=== PATIENT | male | born 1970 | race Caucasian/White ===

== ENCOUNTER → 2016-06-25 | Outpatient (CLI) | payer MEDICARE, OTHER ==
--- NOTE | 2016-06-25 17:45 | CONS ---
DATE OF CONSULTATION: 06/25/2016 This patient is a 45-year-old gentleman who has been evaluated in the sleep center for obstructive sleep apnea/hypopnea syndrome. HISTORY OF PRESENT ILLNESS/SLEEP-WAKE EVALUATION: Patient was diagnosed with obstructive sleep apnea about 3 years ago. At that time it was recommended that he use CPAP equipment. But then he moved, and because of insurance issues and other things, the CPAP machine was taken from him. At present his sleep schedule is from around 11 p.m. until 7 in the morning. He does have problems with falling asleep. No TV in bedroom. He wakes up from sleep about 3 times with 3 episodes of nocturia. He snores, has witnessed episodes of stopped breathing during sleep. In the morning he wakes up tired, falling asleep during the day, worrying about his sleep. He has episodes of anxiety. [place] Sleepiness Scale is 10. Past medical history is positive for: 1. Schizoaffective paranoid type of disorder. 2. Hyperlipidemia. MEDICATIONS: 1. ( ) 2. Vitamins. 3. Clonazepam. 4. Olanzapine. 5. Fenofibrate. 6. Tylenol. 7. ( ) 8. Desmopressin. PAST SURGICAL HISTORY: Ear surgery many years ago. SOCIAL HISTORY: Positive for smoking 1 pack a day for about 17 years. Alcohol consumption: None. REVIEW OF SYSTEMS: No fevers. No double vision. No recent chest pain. No shortness of breath. No abdominal pain. No bleeding episodes. No blood in urine. No seizure episodes. Awakenings from sleep. Tiredness and sleepiness during the day. FAMILY HISTORY: Patient does not remember any family history. PHYSICAL EXAMINATION: GENERAL: A pleasant 45-year-old gentleman without distress. VITAL SIGNS: BP 129/85, HR 88, RR 16. Height 5 feet 10 inches. Weight 227. Neck 16-1/4 inches in circumference. Temperature 98.6. BMI 32.5. Oxygen saturation at room air 96%. HEENT: PERRLA, EOMI. Evaluation of oropharynx showed tongue protrudes midline; retrognathia 4 mm. Extremely low position of soft palate. Mallampati IV. Slight restriction of nasal breathing. NECK: Supple. No JVD. Thyroid is not palpable. LUNGS: Clear to percussion and to auscultation. Good air exchange. No wheezing or rhonchi. HEART: S1, S2 regular. No murmurs, gallops or rubs. ABDOMEN: Soft and nontender. Bowel sounds are present. No organomegaly appreciated. EXTREMITIES: No clubbing or cyanosis. PERSONNEL SECURITY ASSISTANT: Awake, alert, and oriented x3. Cranial nerves 2 to 7 intact. There is no fasciculation or atrophy noted. No focal deficits observed. IMPRESSION: 1. Snoring, witnessed episodes of stopped breathing during sleep, extremely low position of soft palate, retrognathia, excessive sleepiness, Solomon Sleepiness Scale of 10, history of obstructive sleep apnea/hypopnea syndrome in the past; obstructive sleep apnea/hypopnea syndrome. 2. Obesity; body mass index of 32.5. 3. Schizoaffective paranoid type disorder. 4. Hyperlipidemia. PLAN: 1. Polysomnography for evaluation of patient's breathing during sleep. 2. CPAP/BiPAP titration if sleep study confirms obstructive sleep apnea-hypopnea syndrome. 3. Preferable position during sleep on the side. 4. No driving if patient feels any sleepiness. Patient is aware of civil and criminal liability for unsafe driving. 5. I will see patient for follow-up visit to explain results of the testing and following plan. Thank you very much for referring this patient for consultation. Sincerely, Oz Ramos MD, PhD, FAASM. Diplomat of [place] [employer], Sleep Medicine Board by [place] [employer] Flexible Machining System Machinist of [facility] [place]
== END | disposition home or self-care (01) ==
LOC: SLEEP 15:31
PROVIDERS: ATTEND Internal Medicine
DX: G47.33 Obstructive sleep apnea (adult) (pediatric) (principal); E66.9 Obesity, unspecified; Z68.32 Body mass index [BMI] 32.0-32.9, adult; F20.0 Paranoid schizophrenia; E78.5 Hyperlipidemia, unspecified; Z79.899 Other long term (current) drug therapy
CPT/HCPCS: 99211

== ENCOUNTER → 2016-11-12 | Outpatient (CLI) | payer MEDICARE, OTHER ==
--- NOTE | 2016-11-12 23:49 | PN ---
DATE OF SERVICE: 11/12/2016 This patient is a 46-year-old gentleman who has been followed in the sleep center for treatment of obstructive sleep apnea-hypopnea syndrome. Recently patient had a polysomnogram and titration, and I discussed the results of these sleep studies with the patient in detail. He has extremely severe obstructive sleep apnea. He was started on treatment with CPAP. Recently he was started on treatment with the pressure of 14, but he had difficulties tolerating that pressure. Pressure was decreased to 11. At present patient is on CPAP with the pressure 11, and reading from the machine shows usage 20 out of 30 nights for more than 4 hours. CPAP pressure is 11. Leak from the mask is a 41 L/minute. With this regimen, apnea-hypopnea index is 3.6, which is in normal range. Patient sleeps much better with the machine and feels much better during the day. [place] Sleepiness Scale today is 3. MEDICATIONS: 1. ( ) 2. Clonazepam. 3. Olanzapine. 4. Desmopressin. 5. Fenofibrate. 6. ( ) 7. Acetaminophen. 8. ( ) PHYSICAL EXAMINATION: Patient in no distress. VITAL SIGNS: BP 141/86, HR 88, RR 16. Weight 237. Temperature 97.6. Oxygen saturation at room air 96%. HEENT: PERRLA, EOMI. Evaluation of oropharynx showed tongue protrudes midline; extremely low position of soft palate. NECK: Supple. No JVD. Thyroid is not palpable. LUNGS: Clear to percussion and to auscultation. Good air exchange. No wheezing or rhonchi. HEART: S1, S2 regular. No murmurs, gallops or rubs. ABDOMEN: Soft and nontender. Bowel sounds are present. No organomegaly appreciated. EXTREMITIES: No clubbing or cyanosis. WELDER/INSTALLER: Awake, alert, and oriented x3. Cranial nerves 2 to 7 intact. There is no fasciculation or atrophy noted. No focal deficits observed. IMPRESSION: 1. Extremely severe obstructive sleep apnea-hypopnea syndrome; apnea-hypopnea index 110.6 with oxygen desaturation to 75.3%, mostly under control with CPAP at 11 cm of water. Patient demonstrated borderline compliance. 2. ( ) leak from the mask. We will possibly consider changing the mask, although the breathing is under control. 3. Schizophrenia. 4. Anxiety. PLAN: 1. Patient will continue to use his equipment every night for the whole night. 2. Sleep hygiene with regular time in bed for at least 8 hours[address] Patient [address] 4. Prescription for all necessary supplies. Thank you very much for allowing me to participate in the management of your patient. Sincerely, Oz Ramos MD, PhD, FAASM. Diplomat of [place] [employer], Sleep Medicine Board by [place] [employer], [place] [employer]
== END | disposition home or self-care (01) ==
LOC: SLEEP 15:23
PROVIDERS: ATTEND Internal Medicine
DX: G47.33 Obstructive sleep apnea (adult) (pediatric) (principal); Z79.899 Other long term (current) drug therapy; F20.9 Schizophrenia, unspecified; F41.9 Anxiety disorder, unspecified

== ENCOUNTER → 2017-05-12 | Outpatient (CLI) | payer MEDICARE, OTHER ==
--- NOTE | 2017-05-12 15:21 | PN ---
PROGRESS NOTE DATE OF SERVICE: 05/12/2017 46-year-old gentleman has been followed in the Sleep Center for treatment of extremely severe obstructive sleep apnea-hypopnea syndrome. The patient is trying to use his CPAP equipment every night, but sometimes has difficulties because he likes to sleep on the belly and with the CPAP he has difficulties to do that. [place] Sleepiness Scale today is 1. The patient has episodes of sleepiness sometimes especially in the morning after awakening. Sometimes it is difficult to wake him up. I checked his CPAP unit. Usage for period of 6 months is 111 nights and more than 4 hours. This is 77 nights. Average usage is 5.7 hours. Pressure is 10.8 cm of water. Leak is up to 42 L/minute. Apnea-hypopnea index for this period of time is 5.1, for the last night is 3.5. The patient referred that he had changes of the mask and adjusted to humidity and with this regimen he feels better in terms of using his CPAP equipment. MEDICATIONS: 1. Fluvoxamine. 2. . 3. Clonazepam in the evening time. 4. Divalproex. 5. Desmopressin. 6. Fenofibrate. 7. Olanzapine. 8. Simvastatin. PHYSICAL EXAM: Patient in no distress. BP 140/83, HR 71, RR 16, height 5 feet 10 inches, weight 233.8, BMI 33.4, oxygen saturation on room air 96%. Temperature 97.6. Oropharynx low position of soft palate. Retrognathia. ABDOMEN: Obese. Neck Supple, no JVD. Thyroid is not palpable. LUNGS Clear to percussion and to auscultation. Good air exchange. No wheezing or rhonchi. HEART S1, S2 regular. No murmurs, gallops, or rubs. ABDOMEN: Obese. Soft and nontender. Bowel sounds are present. No organomegaly appreciated. EXTREMITIES: No clubbing or cyanosis. BOILER INSPECTOR Awake, alert, and oriented X3. Cranial nerves 2 to 7 intact. There is no fasciculation or atrophy. noted. No focal deficits observed. IMPRESSION: 1. Extremely severe obstructive sleep apnea-hypopnea syndrome apnea-hypopnea index 110.6 with oxygen desaturation to 75.3%, most on control with CPAP at the pressure 11 cm of water. Patient has difficulties to use CPAP equipment while sleeping on the daily position. This is his preferable position during the sleep. 2. History of anxiety. 3. History of schizophrenia. 4. Hyperlipidemia. PLAN: 1. Prescription for a pillow with a space for the holes which we will allow patient to sleep on the belly with CPAP. 2. Continue to use CPAP equipment every night for the whole night. The patient agreed that he needs to do that. 3. Sleep hygiene with regular time in bed for at least 7.[address] 5. Prescription for all necessary CPAP supplies including mask, tube, filters. Thank you very much for allowing me to participate in management of your patient. Sincerely, Oz Ramos MD, PhD, FAASM Diplomat of [employer] Special[employer] Board of Internal Medicine Supervisor Fishing of [facility] [place] MMJUAN / SHAVON: [id number] /
== END | disposition home or self-care (01) ==
LOC: SLEEP 13:24
PROVIDERS: ATTEND Internal Medicine
DX: G47.33 Obstructive sleep apnea (adult) (pediatric) (principal); E78.5 Hyperlipidemia, unspecified

== ENCOUNTER → 2017-07-23 | Outpatient (CLI) | payer MEDICARE, OTHER ==
--- NOTE | 2017-07-23 13:42 | CT ---
EXAMINATION TYPE: CT cervical spine wo con DATE OF EXAM: 07/23/2017 COMPARISON: NONE HISTORY: Neck pain CT DLP: 845 mGycm Automated exposure control for dose reduction was used. TECHNIQUE: CT scan of the cervical spine is obtained without contrast, axial images are obtained, sa gittal and coronal reformatted images are also reviewed. FINDINGS: No acute fractures are evident. There is some uncovertebral joint atrophy contributing to m ild foraminal narrowing within the mid to lower cervical spine. No spinal canal stenosis is present. Vertebral body heights are preserved. Anterior vertebral body spurring is present C5-6. Mild posterio r disc height loss is present C5-6. Posterior spinal malalignment intact IMPRESSION: 1. No suspicious spinal canal stenosis. 2. Mild foraminal narrowing from uncovertebral joint atrophy.
== END | disposition home or self-care (01) ==
LOC: RADCTMAIN 13:08
PROVIDERS: ATTEND Psychiatry & Neurology Neurology
DX: M99.71 Connective tissue and disc stenosis of intervertebral foramina of cervical region (principal); M50.820 Other cervical disc disorders, mid-cervical region, unspecified level
CPT/HCPCS: 72125

== ENCOUNTER → 2017-12-02 | Outpatient (CLI) | payer MEDICARE, OTHER ==
--- NOTE | 2017-12-02 14:22 | PN ---
PROGRESS NOTE DATE OF SERVICE: 12/02/2017 A 47-year-old gentleman who has been followed in the Sleep Center for treatment of obstructive sleep apnea-hypopnea syndrome. The patient is trying to use his machine, but unfortunately not using it every night. Using the machine, according to the he is better after the night when he is not using it. I checked his CPAP unit and usage is 10 of 30 nights for more than 4 hours and 14 out of 30 nights for total usage in one month. Leak is 18 L/minute, which is acceptable. Apnea apnea-hypopnea index slightly high range of 10 for the last month, but it is significantly better than the general apnea-hypopnea index which patient has and which is 110.6 per hour. CPAP pressure in the unit of 11 cm of water. MEDICATIONS: 1. Divalproex. 2. Desmopressin. 3. Lisinopril. 4. Olanzapine. 5. Fluvoxamine. 6. Clonazepam. 7. Baclofen. 8. Ibuprofen. 9. Simvastatin. 10. . [place] Sleepiness Scale is 3. PHYSICAL EXAM: A 47-year-old gentleman without distress. BP 108/82, HR 78, RR 16, height 5 feet 10 inches, weight 229, BMI 32.3, temperature 97.6. Oropharynx low position of soft palate. ABDOMEN: Slightly obese. NECK: Supple, no JVD. Thyroid is not palpable. LUNGS Clear to percussion and to auscultation. Good air exchange. No wheezing or rhonchi. HEART S1, S2 regular. No murmurs, gallops, or rubs. EXTREMITIES No clubbing or cyanosis. WRAP KNITTING MACHINE OPERATOR: Awake, alert, and oriented X3. Cranial nerves 2 to 7 intact. There is no fasciculation or atrophy. noted. No focal deficits observed. IMPRESSION: 1. Extremely severe obstructive sleep apnea-hypopnea syndrome with apnea-hypopnea index 110.6 with oxygen desaturation to 75.3%. The patient is benefitting from CPAP therapy. 2. History of anxiety. 3. History of schizophrenia. 4. Hyperlipidemia. 5. Mild obesity. PLAN: 1. The patient should increase usage of his CPAP unit every night for the whole night. 2. Watching and losing weight. 3. Sleep hygiene with regular time in bed for at least 8 hours. 4. The patient does not drive. Thank you very much for allowing me to participate in management of your patient. Sincerely, Oz Ramos MD, PhD, FAASM Diplomat of [place] [employer] Specialties [place] Board of Internal Medicine Art Supervisor of [facility] [place] MMJUAN / SHAVON: [id number] /
== END | disposition home or self-care (01) ==
LOC: SLEEP 13:01
PROVIDERS: ATTEND Internal Medicine
DX: G47.33 Obstructive sleep apnea (adult) (pediatric) (principal); E66.9 Obesity, unspecified; F41.9 Anxiety disorder, unspecified; F20.9 Schizophrenia, unspecified; E78.5 Hyperlipidemia, unspecified; Z68.32 Body mass index [BMI] 32.0-32.9, adult; Z79.1 Long term (current) use of non-steroidal anti-inflammatories (NSAID); Z79.891 Long term (current) use of opiate analgesic; Z79.899 Other long term (current) drug therapy; Z99.89 Dependence on other enabling machines and devices

== ENCOUNTER → 2018-07-20 | Outpatient (CLI) | payer MEDICARE, OTHER | END | disposition home or self-care (01) | LOC: LABWHC1 14:50 | PROVIDERS: ATTEND Psychiatry & Neurology Psychiatry | DX: Z51.81 Encounter for therapeutic drug level monitoring (principal); Z79.899 Other long term (current) drug therapy | CPT/HCPCS: 36415; 80299 ==

== ENCOUNTER 2018-09-14 17:28 | Emergency (ER) | payer MEDICARE, OTHER ==
[2018-09-14 17:47] VITALS: BP 117/82; TEMP 98.1
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
[2018-09-14 18:20] LABS: Basophils # (A) 0.1 k/uL (0-0.2); Basophils % (A) 1 %; Eosinophils # (A) 0.1 k/uL (0-0.7); Eosinophils % (A) 2 %; HCT 44.2 % (39.0-53.0); Lymphocytes # (A) 1.9 k/uL (1.0-4.8); Lymphocytes % (A) 35 %; MCH 31.1 pg (25.0-35.0); MCHC 33.9 g/dL (31.0-37.0); MCV 91.8 fL (80.0-100.0); Mean Platelet Volume 7.8; Monocytes # (A) 0.4 k/uL (0-1.0); Monocytes % (A) 7 %; Neutrophils # (A) 2.7 k/uL (1.3-7.7); Neutrophils % (A) 51 %; Platelet Count 227 k/uL (150-450); RBC 4.81 m/uL (4.30-5.90); RDW 14.1 % (11.5-15.5); WBC 5.3 k/uL (3.8-10.6)
[2018-09-14 18:29] LABS: ALT 49 U/L (21-72); AST 51 U/L (17-59); Albumin 4.3 g/dL (3.5-5.0); Alkaline Phosphatase 73 U/L (38-126); Anion Gap 11 mmol/L; Blood Urea Nitrogen 17 mg/dL (9-20); Calcium 9.4 mg/dL (8.4-10.2); Carbon Dioxide 22 mmol/L (22-30); Chloride 111 mmol/L (98-107); Glucose 98 mg/dL (74-99); Lipase 126 U/L (23-300); Magnesium 2.1 mg/dL (1.6-2.3); Potassium 4.2 mmol/L (3.5-5.1); Sodium 144 mmol/L (137-145); Total Bilirubin 0.3 mg/dL (0.2-1.3); Total Protein 6.8 g/dL (6.3-8.2)
--- NOTE | 2018-09-14 18:30 | CT ---
EXAMINATION TYPE: CT brain wo con DATE OF EXAM: 09/14/2018 COMPARISON: None HISTORY: Head injury, disoriented CT DLP: 1099.4 mGycm. Automated Exposure Control for Dose Reduction was Utilized. TECHNIQUE: CT scan of the head is performed without contrast. FINDINGS: Ventricles and sulci appear normal. There is no mass effect nor midline shift. There is no sign of intracranial hemorrhage. There is some mucosal thickening right maxillary sinus. Calvarium ap pears intact. IMPRESSION: Negative CT scan of the brain.
[2018-09-14 18:31] LABS: Amphetamine Screen,Urine Not Detected (NotDetected); Barbiturate Screen,Urine Not Detected (NotDetected); Benzodiazepines Screen,Urine Not Detected (NotDetected); Cocaine Screen,Urine Not Detected (NotDetected); Methadone Screen, Urine Not Detected (NotDetected); Opiate Screen,Urine Not Detected (NotDetected); Oxycodone Screen, Urine Not Detected (NotDetected); Phencyclidine Screen,Urine Not Detected (NotDetected); Tricyclic Antidepressant,Urine Not Detected (NotDetected); Urn Cannabinoid Scrn Not Detected (NotDetected)
[2018-09-14 18:34] LABS: Valproic Acid (Depakene) 45.1 ug/mL
[2018-09-14 18:42] LABS: Alcohol 242 mg/dL
[2018-09-15 03:28] VITALS: PULSE 70; RESP 16
== END 2018-09-15 03:26 | disposition home or self-care (01) ==
LOC: EC 17:28
DX: F10.129 Alcohol abuse with intoxication, unspecified (principal); S00.01XA Abrasion of scalp, initial encounter; R45.851 Suicidal ideations; F17.200 Nicotine dependence, unspecified, uncomplicated; Z79.899 Other long term (current) drug therapy; Z88.2 Allergy status to sulfonamides; W19.XXXA Unspecified fall, initial encounter
CPT/HCPCS: 36415; 80164; 83930; 80053; 83690; 83735; 85025; 80306; 70450; 99285; G0480; 80320; 82075

== ENCOUNTER 2019-09-13 11:01 | Emergency (ER) | payer MEDICARE, OTHER ==
--- NOTE | 2019-09-13 11:41 | ED ---
General Adult HPI - General Chief complaint: Psychiatric Symptoms Stated complaint: PETITIONED Time Seen by Provider: 09/13/19 11:05 Source: patient, police, RN notes reviewed, old records reviewed Mode of arrival: ambulatory Limitations: no limitations - History of Present Illness Initial comments: This is a 49-year-old male who presents emergency department stating that he was in a retirement and he gets upset about a situation retirement so he got up and left and went to a motel. Patient states because of that he has not been taking any of his medication. Today the police came to him and said that they had a court order for him to be evaluated emergency department. Patient denies any suicidal homicidal ideations. Patient denies any drug use. Patient denies any physical complaints today. - Related Data Home Medications Medication Instructions Recorded Confirmed Baclofen [Lioresal] 10 mg PO DAILY 09/14/18 09/14/18 Benzedrex 2 sprays EA NOSTRIL QID 09/14/18 09/14/18 Desmopressin [Ddavp] 0.2 mg PO HS 09/14/18 09/14/18 Divalproex ER [Depakote ER] 1,250 mg PO HS 09/14/18 09/14/18 Ibuprofen [Motrin] 600 mg PO BID PRN 09/14/18 09/14/18 Lisinopril [Zestril] 20 mg PO DAILY 09/14/18 09/14/18 Multivitamins, Thera [Multivitamin 1 tab PO DAILY 09/14/18 09/14/18 (formulary)] OLANZapine [ZyPREXA] 20 mg PO HS 09/14/18 09/14/18 [place]-3 Fatty Acids/Fish Oil [Fish 1,000 mg PO BID 09/14/18 09/14/18 Oil 1,000 mg Softgel] Triamcinolone 0.5% Cream [Kenalog 1 applic TOPICAL BID 09/14/18 09/14/18 0.5% Cream] fluvoxaMINE MALEATE [Fluvoxamine 100 mg PO BID 09/14/18 09/14/18 Maleate] Allergies Allergy/AdvReac Type Severity Reaction Status Date / Time Sulfa (Sulfonamide Allergy Rash/Hives Verified 09/13/19 11:11 Antibiotics) Review of Systems ROS Statement: Those systems with pertinent positive or pertinent negative responses have been documented in the HPI. ROS Other: All systems not noted in ROS Statement are negative. Past Medical History Past Medical History: No Reported History Additional Past Medical History / Comment(s): schizophrenia History of Any Multi-Drug Resistant Organisms: None Reported Past Surgical History: Ear Surgery, Orthopedic Surgery Past Psychological History: Anxiety, Panic Disorder, Schizophrenia Smoking Status: Current every day smoker Past Alcohol Use History: None Reported Past Drug Use History: None Reported General Exam - General Exam Comments Initial Comments: GENERAL: Patient is well-developed and well-nourished. Patient is nontoxic and well- hydrated and is in no acute distress. ENT: Neck is soft and supple. No significant lymphadenopathy is noted. Neck has full range of motion without eliciting any pain. EYES: The sclera were anicteric and conjunctiva were pink and moist. Extraocular movements were intact and pupils were equal round and reactive to light. Eyelids were unremarkable. PULMONARY: Unlabored respirations. Good breath sounds bilaterally. No audible rales rhonchi or wheezing was noted. CARDIOVASCULAR: There is a regular rate and rhythm without any murmurs gallops or rubs. ABDOMEN: Soft and nontender with normal bowel sounds. SKIN: Skin is clear with no lesions or rashes and otherwise unremarkable. NEUROLOGIC: Patient is alert and oriented x3. Cranial nerves II through XII are grossly intact. MUSCULOSKELETAL: Normal extremities with adequate strength and full range of motion. LYMPHATICS: No significant lymphadenopathy is noted PSYCHIATRIC: Patient is upset that he is here and doesn't understand why he has to be here. Patient denies suicidal or homicidal ideations. Limitations: no limitations Course Vital Signs 09/13/19 11:07 Temperature 98.5 F Pulse Rate 86 Respiratory 20 Rate Blood Pressure 175/101 O2 Sat by Pulse 97 Oximetry Medical Decision Making - Medical Decision Making EPS evaluated the patient and determined the patient could go home. Disposition Clinical Impression: Schizophrenia Disposition: HOME SELF-CARE Condition: Good Is patient prescribed a controlled substance at d/c from ED?: No Referrals: [facility] [Primary Care Provider] - 1-2 days Time of Disposition: 13:53
[2019-09-13] MEDS ORDERED: LISINOPRIL 20 MG TAB PO STA (12:01)
[2019-09-13 14:18] VITALS: BP 172/98; PULSE 79; RESP 18; TEMP 98.7
== END 2019-09-13 16:08 | disposition home or self-care (01) ==
LOC: EC 11:01
DX: F20.9 Schizophrenia, unspecified (principal); F41.0 Panic disorder [episodic paroxysmal anxiety]; F17.200 Nicotine dependence, unspecified, uncomplicated; Z79.899 Other long term (current) drug therapy; Z88.2 Allergy status to sulfonamides
CPT/HCPCS: 82075; 99284

== ENCOUNTER 2020-09-21 01:39 | Emergency (ER) | payer MEDICARE, OTHER ==
[2020-09-21 01:50] VITALS: TEMP 98.2
[2020-09-21] MEDS ORDERED: DIPH,PERTUS(ACELL)TETVAC-LF 0.5 ML VIAL IM ONE (02:31)
--- NOTE | 2020-09-21 03:22 | CT ---
EXAM: CT Head Without Intravenous Contrast CLINICAL HISTORY: Head injury. Headache. TECHNIQUE: Axial computed tomography images of the head/brain without intravenous contrast. CTDI is 45.2 mGy and DLP is 999.6 mGy-cm. This CT exam was performed using one or more of the following dose reduction techniques: automated exposure control, adjustment of the mA and/or kV according to patient size, and/or use of iterative reconstruction technique. COMPARISON: 09/14/2018. FINDINGS: Brain: No abnormal extra-axial collection is noted. No hemorrhage. Midline shift: No midline shift or mass-effect. Midline anatomy is unremarkable. Ventricles: There is prominence of the ventricular system, cortical sulci, basilar cisterns, compatible with age related atrophy. Bones/joints: Calvarium is within normal limits. No acute fracture. Soft tissues: Unremarkable. Sinuses: 2.3 cm polyp versus mucous retention cyst floor of the left maxillary sinus is noted. Mastoid air cells: Unremarkable as visualized. No mastoid effusion. IMPRESSION: 1. Age-related atrophy. 2. No acute intracranial pathology. 3. If there is concern for etiology such as early acute lacunar infarcts, magnetic resonance imaging of the brain with diffusion-weighted sequences should be performed. EXAM: CT Cervical Spine Without Intravenous Contrast CLINICAL HISTORY: Head injury. Headache. TECHNIQUE: Axial computed tomography images of the cervical spine without intravenous contrast. CTDI is 15.6 mGy and DLP is 400.6 mGy-cm. This CT exam was performed using one or more of the following dose reduction techniques: automated exposure control, adjustment of the mA and/or kV according to patient size, and/or use of iterative reconstruction technique. COMPARISON: No previous studies. FINDINGS: Vertebrae: There is a normal relationship of C1 and C2. Discs/spinal canal/neural foramina: Mild to moderate degenerative disc disease of the cervical spine. Gentle dextro scoliosis of the cervical spine. Transaxial images of the cervical spine reveals multilevel posterior facet hypertrophy and disc osteophyte complexes. No spinal canal stenosis. Soft tissues: Paraspinal and regional soft tissues are within normal limits. Lung apices: Lung apices are unremarkable. IMPRESSION: 1. Degenerative disc disease of the cervical spine. 2. No acute injury to the cervical spine.
--- NOTE | 2020-09-21 04:56 | ED ---
General Adult HPI - General Source: patient, police Mode of arrival: ambulatory Limitations: altered mental status - History of Present Illness -: hour(s) Location: head Improves with: none Worsens with: none Associated Symptoms: denies other symptoms <Geoffrey Mcgregor - Last Filed: 09/21/20 06:41> <WrightRob - Last Filed: 09/21/20 09:03> - General Chief complaint: Psychiatric Symptoms Stated complaint: ETOH Time Seen by Provider: 09/21/20 02:25 - History of Present Illness Initial comments: Patient is a 50-year-old man brought to have evaluation for public intoxication and to rule out suicidal intent. Patient found the patient drunk in public and had brought him home. He was later observed walking the street and not able to describe what he was doing there. When I interview the patient, he does not express any depression or suicidal ideation. He states he was just drinking. Not able to give any additional history due to intoxication. Does admit to a g round-level fall (Geoffrey Mcgregor) - Related Data Home Medications Medication Instructions Recorded Confirmed Baclofen [Lioresal] 10 mg PO DAILY 09/14/18 09/21/20 Desmopressin [Ddavp] 0.2 mg PO HS 09/14/18 09/21/20 Ibuprofen [Motrin] 600 mg PO BID PRN 09/14/18 09/21/20 Multivitamins, Thera [Multivitamin 1 tab PO DAILY 09/14/18 09/21/20 (formulary)] [place]-3 Fatty Acids/Fish Oil [Fish 1,000 mg PO BID 09/14/18 09/21/20 Oil 1,000 mg Softgel] fluvoxaMINE MALEATE [Fluvoxamine 100 mg PO W/SUPPER 09/14/18 09/21/20 Maleate] Famotidine [Pepcid] 20 mg PO BID 09/21/20 09/21/20 OLANZapine 15 mg PO HS 09/21/20 09/21/20 OLANZapine [ZyPREXA] 5 mg PO DAILY 09/21/20 09/21/20 Simvastatin [Zocor] 20 mg PO HS 09/21/20 09/21/20 Sodium Chloride [Saline Nasal 1 spray EA NOSTRIL Q4H PRN 09/21/20 09/21/20 Export] busPIRone HCL 15 mg PO BID 09/21/20 09/21/20 lisinopriL [Zestril] 10 mg PO DAILY 09/21/20 09/21/20 Allergies Allergy/AdvReac Type Severity Reaction Status Date / Time Sulfa (Sulfonamide Allergy Rash/Hives Verified 09/21/20 08:15 Antibiotics) Review of Systems ROS Other: All systems not noted in ROS Statement are negative. Limitations: ROS unobtainable due to patients medical condition (Appears intoxicated) <Geoffrey Mcgregor - Last Filed: 09/21/20 06:41> ROS Other: All systems not noted in ROS Statement are negative. <Rob Wright - Last Filed: 09/21/20 09:03> ROS Statement: Those systems with pertinent positive or pertinent negative responses have been documented in the HPI. Past Medical History Past Medical History: No Reported History Additional Past Medical History / Comment(s): schizophrenia History of Any Multi-Drug Resistant Organisms: None Reported Past Surgical History: Ear Surgery, Orthopedic Surgery Past Psychological History: Anxiety, Panic Disorder, Schizophrenia Smoking Status: Never smoker Past Alcohol Use History: Occasional Past Drug Use History: None Reported <Geoffrey Mcgregor - Last Filed: 09/21/20 06:41> General Exam Limitations: altered mental status General appearance: appears intoxicated Head exam: Present: normocephalic, other (Contusion, right parietal) Eye exam: Present: normal appearance, EOMI, nystagmus. Absent: scleral icterus, conjunctival injection Neck exam: Present: normal inspection, full ROM. Absent: tenderness Respiratory exam: Present: normal lung sounds bilaterally. Absent: respiratory distress, wheezes, rales, rhonchi, stridor, chest wall tenderness Cardiovascular Exam: Present: regular rate, normal rhythm, normal heart sounds. Absent: systolic murmur, diastolic murmur, rubs, gallop GI/Abdominal exam: Present: soft. Absent: distended, tenderness, guarding, rebound, rigid, mass Extremities exam: Present: normal inspection, normal capillary refill. Absent: pedal edema, calf tenderness Back exam: Present: normal inspection. Absent: CVA tenderness (R), CVA tenderness (L) Neurological exam: Present: alert Skin exam: Present: warm, dry, intact, normal color. Absent: rash <Geoffrey Mcgregor - Last Filed: 09/21/20 06:41> Course Vital Signs 09/21/20 09/21/20 01:46 09:01 Temperature 98.2 F Pulse Rate 100 86 Respiratory 20 16 Rate Blood Pressure 140/93 114/62 O2 Sat by Pulse 94 L 99 Oximetry Procedures - Restraint - Face to Face Restraint Occurrence 1 Patient's Immediate Situation: Endangers self safety, Other (see comment) Patient's Reaction to the Intervention: Uncooperative, Bizarre, Aggressive, Restless Patient's Medical & Behavioral Condition: Awake, Paranoid, Bizarre behavior Need to Continue or Terminate Restraint or Seclusion: Continue Face to Face Eval of Restraint Date: 09/21/20 Face to Face Eval of Restraint Time: 04:20 <Geoffrey Mcgregor - Last Filed: 09/21/20 06:41> Disposition Is patient prescribed a controlled substance at d/c from ED?: No <Geoffrey Mcgregor - Last Filed: 09/21/20 06:41> <Rob Wright - Last Filed: 09/21/20 09:03> Clinical Impression: Alcohol intoxication, Head injury Disposition: HOME SELF-CARE Condition: Fair Instructions (If sedation given, give patient instructions): Head Injury (ED), Alcohol Intoxication (ED) Referrals: None,Stated [Primary Care Provider] - 1-2 days
[2020-09-21 09:02] VITALS: BP 114/62; PULSE 86; RESP 16
== END 2020-09-21 09:13 | disposition home or self-care (01) ==
LOC: EC 01:39
DX: S00.03XA Contusion of scalp, initial encounter (principal); F10.129 Alcohol abuse with intoxication, unspecified; F41.9 Anxiety disorder, unspecified; F41.0 Panic disorder [episodic paroxysmal anxiety]; F20.9 Schizophrenia, unspecified; Y90.9 Presence of alcohol in blood, level not specified; Z79.899 Other long term (current) drug therapy; Z88.2 Allergy status to sulfonamides; Z23 Encounter for immunization; W18.30XA Fall on same level, unspecified, initial encounter; Y92.89 Other specified places as the place of occurrence of the external cause
CPT/HCPCS: 70450; 72125; 82075; 90471; 90715; 99284

== ENCOUNTER 2020-09-21 21:44 | Inpatient (IN) | payer OTHER, MEDICARE ==
[2020-09-21] MEDS ORDERED: MORPHINE SULFATE 4 MG/ML SYRINGE IV STA (21:53)
[2020-09-21 21:54] LABS: Glucose,Whole Blood 99 mg/dL (75-99)
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
--- NOTE | 2020-09-21 22:24 | XR ---
Result: History: Pain status post [facility]. Comparison: None available. Technique: A single frontal radiograph of the pelvis was reviewed. Findings: No acute fracture or dislocation is seen. The visualized osseous structures are in anatomic alignmen t. The visualized joint spaces are preserved. Impression: No acute osseous abnormality.
[2020-09-21 22:25] LABS: Basophils # (A) 0.1 k/uL (0-0.2); Basophils % (A) 1 %; Eosinophils % (A) 1 %; HGB 15.3 gm/dL (13.0-17.5); Lymphocytes # (A) 3.5 k/uL (1.0-4.8); Lymphocytes % (A) 48 %; MCH 30.4 pg (25.0-35.0); MCV 89.6 fL (80.0-100.0); Mean Platelet Volume 7.3; Monocytes # (A) 0.7 k/uL (0-1.0); Monocytes % (A) 9 %; Neutrophils # (A) 2.8 k/uL (1.3-7.7); Neutrophils % (A) 38 %; Platelet Count 210 k/uL (150-450); RBC 5.02 m/uL (4.30-5.90); RDW 13.2 % (11.5-15.5); WBC 7.3 k/uL (3.8-10.6)
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
--- NOTE | 2020-09-21 22:28 | XR ---
RESULT: HISTORY: injury TECHNIQUE: 2 views of the right tibia-fibula were obtained. COMPARISON: None. FINDINGS: There is completely displaced and overriding fractures of the proximal tibia and fibular diaphysis. N o evidence of dislocation. There are scattered small debris about the posterior soft tissues. IMPRESSION: Proximal tibia and fibula shaft fractures.
[2020-09-21 22:43] LABS: ALT 54 U/L (4-49); AST 100 U/L (17-59); African American GFR (CKD) >90 (>60 ml/min/1.73 sqM); Albumin 4.6 g/dL (3.5-5.0); Alkaline Phosphatase 86 U/L (38-126); Anion Gap 14 mmol/L; Blood Urea Nitrogen 14 mg/dL (9-20); Calcium 8.6 mg/dL (8.4-10.2); Carbon Dioxide 22 mmol/L (22-30); Chloride 105 mmol/L (98-107); Glucose 100 mg/dL (74-99); Non-African American GFR(CKD) >90 (>60 ml/min/1.73 sqM); Potassium 3.8 mmol/L (3.5-5.1); Sodium 141 mmol/L (137-145); Total Bilirubin 0.5 mg/dL (0.2-1.3); Total Protein 7.4 g/dL (6.3-8.2)
[2020-09-21 22:44] LABS: INR 0.9 (<1.2); Partial Thromboplastin Time 22.5 sec (22.0-30.0); Prothrombin Time 9.9 sec (9.0-12.0)
[2020-09-21 22:58] LABS: Alcohol 217 mg/dL
[2020-09-21] MEDS ORDERED: SODIUM CHLORIDE 0.9% 1,000 ML IV ONE (23:00)
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
[2020-09-21 23:05] LABS: Appearance,Urine Clear (Clear); Bilirubin,Urine Negative (Negative); Blood,Urine Small (Negative); Color,Urine Light Yellow; Glucose,Urine (UA) Negative (Negative); Ketones,Urine Negative (Negative); Leukocyte Esterase,Urine Negative (Negative); Mucus,Urine Rare /hpf; Nitrite,Urine Negative (Negative); Protein,Urine Trace (Negative); RBC,Urine 2 /hpf (0-5); Specific Gravity,Urine 1.028 (1.001-1.035); Urobilinogen,Urine <2.0 mg/dL (<2.0); WBC,Urine 1 /hpf (0-5)
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
[2020-09-21 23:23] LABS: Amphetamine Screen,Urine Not Detected (NotDetected); Barbiturate Screen,Urine Not Detected (NotDetected); Benzodiazepines Screen,Urine Not Detected (NotDetected); Cocaine Screen,Urine Not Detected (NotDetected); Methadone Screen, Urine Not Detected (NotDetected); Opiate Screen,Urine Detected (NotDetected); Oxycodone Screen, Urine Not Detected (NotDetected); Phencyclidine Screen,Urine Not Detected (NotDetected); Tricyclic Antidepressant,Urine Not Detected (NotDetected); Urn Cannabinoid Scrn Not Detected (NotDetected)
[2020-09-21] MEDS ORDERED: HYDROmorphone 2 MG TAB PO PRN (23:44)
[2020-09-21] MEDS ORDERED: ONDANSETRON 4 MG/2 ML VIAL IVP PRN (23:44)
[2020-09-21] MEDS ORDERED: HYDROmorphone 0.5 MG/0.5 ML SYRINGE IVP PRN (23:44)
[2020-09-21] MEDS ORDERED: NALOXONE 0.4 MG/ML 1 ML VIAL IV PRN (23:44)
[2020-09-21] MEDS ORDERED: LORazepam 2 MG/ML INJ IV PRN ×3 (23:48)
[2020-09-21] MEDS ORDERED: LORazepam 2 MG/ML INJ IV STA (23:58)
[2020-09-22] MEDS: THIAMINE 100 MG TAB PO SCH ×3 (00:03→16:43)
[2020-09-22] MEDS: SODIUM CHLORIDE 0.9% 1,000 ML IV SCH ×6 (00:05→16:47)
[2020-09-22] MEDS ORDERED: SODIUM CHLORIDE 0.9% IVPB PRN (00:53)
[2020-09-22] MEDS ORDERED: VANCOMYCIN IVPB PRN (00:53)
[2020-09-22] MEDS: VANCOMYCIN 1,750 MG in SODIUM CHLORIDE 0.9% 500 ML 500 ML IVPB ONE ×2 (01:20→01:30)
[2020-09-22] MEDS ORDERED: HYDROmorphone (PF) 1 MG/ML ONE (01:52)
[2020-09-22] MEDS ORDERED: LIDOCAINE 1% INJ 10MG/ML (20 ML MDV) ONE (01:52)
[2020-09-22] MEDS ORDERED: SUCCINYLCHOLINE CHLORIDE 100 MG/5 ML SYR IV ONE (01:52)
[2020-09-22] MEDS ORDERED: fentaNYL (PF) 50 MCG/ML 2 ML AMP ONE (01:52)
[2020-09-22] MEDS ORDERED: PROPOFOL 10 MG/ML 20 ML VIAL IV ONE (01:52)
[2020-09-22] MEDS ORDERED: IV FLUID CONTINUATION 1,000 ML IV ONE (01:52)
[2020-09-22] MEDS ORDERED: ceFAZolin 3,000 MG in SODIUM CHLORIDE 0.9% IRRIGATIO 3,000 ML IRRIGATION ONE (02:27)
[2020-09-22] MEDS ORDERED: diazePAM 5 MG TAB PO PRN (03:56)
[2020-09-22] MEDS ORDERED: HYDROmorphone 1 MG/ML 1 ML SYRINGE IVP PRN (03:56)
[2020-09-22] MEDS ORDERED: BENZOCAINE/MENTHOL LOZENG 1 EACH LOZENGE MUCOUS MEM PRN (03:56)
[2020-09-22] MEDS ORDERED: HYDROmorphone 0.5 MG/0.5 ML SYRINGE IVP PRN (03:56)
[2020-09-22] MEDS ORDERED: HYDROcodone/APAP 5-325MG 1 EACH TAB PO PRN ×2 (03:56)
[2020-09-22] MEDS ORDERED: NALOXONE 0.4 MG/ML 1 ML VIAL IV PRN (03:57)
[2020-09-22] MEDS ORDERED: ACETAMINOPHEN TAB 325 MG TAB PO PRN (03:57)
[2020-09-22] MEDS ORDERED: MAGNESIUM HYDROXIDE 2,400 MG/10 ML CUP PO PRN (03:59)
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
[2020-09-22] MEDS: BACLOFEN 10 MG TAB PO SCH (08:54)
[2020-09-22] MEDS: SENNOSIDES-DOCUSATE SODIUM 1 EACH TAB PO SCH ×2 (08:54→20:45)
[2020-09-22] MEDS: busPIRone HCl 5 MG TAB PO SCH ×3 (08:54→20:45)
[2020-09-22] MEDS: MULTIVITAMINS, THERA 1 EACH TAB PO SCH (08:55)
[2020-09-22] MEDS: PANTOPRAZOLE 40 MG/10 ML VIAL IV SCH (08:56)
[2020-09-22] MEDS ORDERED: lisinopriL 10 MG TAB PO SCH (09:00)
[2020-09-22] MEDS ORDERED: FAMOTIDINE 20 MG TAB PO SCH (09:00)
[2020-09-22] MEDS: VANCOMYCIN 1,750 MG in SODIUM CHLORIDE 0.9% 500 ML 500 ML IVPB SCH ×2 (09:32→16:45)
[2020-09-22] MEDS: OLANZapine 5 MG TAB PO SCH (09:48)
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
[2020-09-22 10:22] LABS: Basophils % (A) 0 %; Eosinophils % (A) 0 %; Lymphocytes % (A) 13 %; MCH 32.1 pg (25.0-35.0); MCHC 36.1 g/dL (31.0-37.0); MCV 88.9 fL (80.0-100.0); Mean Platelet Volume 7.3; Monocytes # (A) 0.8 k/uL (0-1.0); Monocytes % (A) 9 %; Neutrophils # (A) 6.3 k/uL (1.3-7.7); Neutrophils % (A) 77 %; Platelet Count 165 k/uL (150-450); RBC 3.83 m/uL (4.30-5.90); RDW 13.2 % (11.5-15.5); WBC 8.2 k/uL (3.8-10.6)
[2020-09-22 10:25] LABS: HGB 12.3 gm/dL (13.0-17.5)
--- NOTE | 2020-09-22 10:34 | XR ---
Fluoroscopy INDICATION: Pain FINDINGS: Fluoroscopy time: 33 seconds. Images obtained: 6. IMPRESSIONS: 1. Documentation of fluoroscopy.
--- NOTE | 2020-09-22 11:46 | XR ---
EXAMINATION TYPE: XR ankle complete LT DATE OF EXAM: 09/22/2020 COMPARISON: None HISTORY: Left ankle pain TECHNIQUE: Left ankle is examined in 3 projections. FINDINGS: Transverse fracture through the medial malleolus left ankle. Ankle mortise is intact. Achil les tendon calcaneal heel spur is present. Soft tissues appear normal. IMPRESSION: 1. Transverse fracture medial malleolus.
[2020-09-22] MEDS ORDERED: HYDROcodone/APAP 7.5-325MG 1 EACH TAB PO PRN (12:45)
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
[2020-09-22] MEDS ORDERED: KETOROLAC 15 MG/ML 1 ML VIAL IVP PRN (13:43)
[2020-09-22] MEDS ORDERED: SODIUM CHLORIDE 0.9% IVPB SCH (14:00)
[2020-09-22] MEDS ORDERED: VANCOMYCIN IVPB SCH (14:00)
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
--- NOTE | 2020-09-22 14:37 | XR ---
RESULT: HISTORY: S/P RLE Sx and to R/O LLE Fx TECHNIQUE: 2 views each of the bilateral tibias and fibulas. COMPARISON: Earlier same day. FINDINGS: Right tibia and fibula: There is interval intramedullary mary fixation of the proximal tibial shaft fr acture in improvement in anatomic alignment. There is a 2.6 cm anterior fracture fragment. There is a lso interval reduction of the proximal fibular shaft fracture in improved anatomic alignment. There a re postsurgical changes about the soft tissues. Multiple anterior skin billy are seen. Left tibia and fibula: There is no acute fracture or dislocation. The visualized joint spaces are pre served. IMPRESSION: Right proximal tibia and fibula fracture status post ORIF as above. No acute fracture of the left tibia and fibula. No acute osseous abnormality.
[2020-09-22] MEDS: ASCORBIC ACID 500 MG TAB PO SCH ×2 (14:38→20:44)
[2020-09-22] MEDS: ZINC SULFATE 220 MG CAP PO SCH (14:38)
[2020-09-22] MEDS: HYDROcodone/APAP 7.5-325MG 1 EACH TAB PO PRN ×2 (14:39→20:46)
--- NOTE | 2020-09-22 14:47 | XR ---
Result: History: Pain. Comparison: None available. Technique: 3 views of the left foot. Findings: The bone mineralization is appropriate for age. There is a nondisplaced fracture of the medial malleolus. The remaining visualized osseous structures are in anatomic alignment. Mild dorsal calcaneal enthesopathy seen. Impression: Nondisplaced medial malleolus fracture. Otherwise no acute fracture of the left foot
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
[2020-09-22] MEDS: HEPARIN SODIUM,PORCINE/PF 5,000 UNIT/0.5 ML SYRINGE SQ SCH ×2 (16:43→23:12)
[2020-09-22] MEDS: ATORVASTATIN 10 MG TAB PO SCH (20:44)
[2020-09-22] MEDS: DESMOPRESSIN 0.2 MG TAB PO SCH (20:44)
[2020-09-22] MEDS: OLANZapine 7.5 MG TAB PO SCH (20:44)
[2020-09-23] MEDS: VANCOMYCIN 1,750 MG in SODIUM CHLORIDE 0.9% 500 ML 500 ML IVPB SCH ×3 (01:13→17:01)
[2020-09-23] MEDS: HYDROcodone/APAP 7.5-325MG 1 EACH TAB PO PRN ×3 (02:42→17:42)
[2020-09-23] MEDS ORDERED: VANCOMYCIN TROUGH DUE 1 EACH MISC MISCELLANE ONE (09:00)
[2020-09-23] MEDS: ZINC SULFATE 220 MG CAP PO SCH (09:03)
[2020-09-23] MEDS: busPIRone HCl 5 MG TAB PO SCH ×3 (09:03→20:52)
[2020-09-23] MEDS: THIAMINE 100 MG TAB PO SCH ×2 (09:03→17:00)
[2020-09-23] MEDS: SENNOSIDES-DOCUSATE SODIUM 1 EACH TAB PO SCH ×2 (09:03→20:51)
[2020-09-23] MEDS: PANTOPRAZOLE 40 MG/10 ML VIAL IV SCH (09:03)
[2020-09-23] MEDS: HEPARIN SODIUM,PORCINE/PF 5,000 UNIT/0.5 ML SYRINGE SQ SCH ×2 (09:03→17:00)
[2020-09-23] MEDS: SODIUM CHLORIDE 0.9% 1,000 ML IV SCH (09:03)
[2020-09-23] MEDS: BACLOFEN 10 MG TAB PO SCH (09:04)
[2020-09-23] MEDS: MULTIVITAMINS, THERA 1 EACH TAB PO SCH (09:04)
[2020-09-23] MEDS: ASCORBIC ACID 500 MG TAB PO SCH ×2 (09:04→20:52)
[2020-09-23] MEDS: OLANZapine 5 MG TAB PO SCH (09:07)
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
[2020-09-23 09:40] LABS: HCT 32.2 % (39.0-53.0); HGB 11.2 gm/dL (13.0-17.5); MCH 31.4 pg (25.0-35.0); MCHC 34.8 g/dL (31.0-37.0); MCV 90.1 fL (80.0-100.0); Mean Platelet Volume 7.5; Platelet Count 117 k/uL (150-450); RBC 3.57 m/uL (4.30-5.90); WBC 6.3 k/uL (3.8-10.6)
[2020-09-23 10:43] LABS: ALT 35 U/L (4-49); AST 94 U/L (17-59); African American GFR (CKD) >90 (>60 ml/min/1.73 sqM); Albumin 3.3 g/dL (3.5-5.0); Albumin/Globulin Ratio 1.4; Alkaline Phosphatase 68 U/L (38-126); Anion Gap 7 mmol/L; Blood Urea Nitrogen 8 mg/dL (9-20); Calcium 7.7 mg/dL (8.4-10.2); Carbon Dioxide 25 mmol/L (22-30); Chloride 101 mmol/L (98-107); Globulin 2.3 g/dL; Glucose 93 mg/dL (74-99); Non-African American GFR(CKD) >90 (>60 ml/min/1.73 sqM); Potassium 3.8 mmol/L (3.5-5.1); Sodium 133 mmol/L (137-145); Total Protein 5.6 g/dL (6.3-8.2)
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
--- NOTE | 2020-09-23 12:39 | XR ---
EXAMINATION TYPE: XR chest 1V DATE OF EXAM: 09/23/2020 CLINICAL HISTORY: Difficulty breathing and CHF progress study. TECHNIQUE: Single AP portable upright view of the chest is obtained. COMPARISON: Chest x-ray and CT from 2 days earlier FINDINGS: Persistent low lung volumes and mild cardiomegaly. No new focal airspace opacity, pleural effusion, or pneumothorax seen bilaterally. Osseous structures are intact. IMPRESSION: Low lung volumes and mild cardiomegaly redemonstrated. No new acute infiltrate.
--- NOTE | 2020-09-23 15:45 | XR ---
EXAMINATION TYPE: XR chest 1V portable DATE OF EXAM: 09/23/2020 CLINICAL HISTORY: Difficulty breathing progress study. TECHNIQUE: Single AP portable upright view of the chest is obtained. COMPARISON: Chest x-ray from earlier today FINDINGS: Persistent low lung volumes and mild cardiomegaly. No new focal airspace opacity, pleural e ffusion, or pneumothorax seen bilaterally. Osseous structures remain intact. Persistent right sided t ayanna deviation. IMPRESSION: Low lung volumes and mild cardiomegaly redemonstrated. No significant change from earlier today.
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
[2020-09-23] MEDS: dexAMETHasone 4 MG TAB PO SCH (17:37)
[2020-09-23] MEDS: ATORVASTATIN 10 MG TAB PO SCH (20:52)
[2020-09-23] MEDS: DESMOPRESSIN 0.2 MG TAB PO SCH (20:53)
[2020-09-23] MEDS: OLANZapine 7.5 MG TAB PO SCH (20:53)
[2020-09-24] MEDS: HEPARIN SODIUM,PORCINE/PF 5,000 UNIT/0.5 ML SYRINGE SQ SCH ×3 (00:26→16:26)
[2020-09-24] MEDS: VANCOMYCIN 1,750 MG in SODIUM CHLORIDE 0.9% 500 ML 500 ML IVPB SCH ×2 (03:19→09:54)
[2020-09-24] MEDS: HYDROcodone/APAP 7.5-325MG 1 EACH TAB PO PRN ×3 (05:38→17:31)
[2020-09-24] MEDS ORDERED: PANTOPRAZOLE 40 MG TABLET PO SCH (07:30)
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
[2020-09-24] MEDS: OLANZapine 5 MG TAB PO SCH (09:41)
[2020-09-24] MEDS: busPIRone HCl 5 MG TAB PO SCH ×2 (09:43→16:26)
[2020-09-24] MEDS: SENNOSIDES-DOCUSATE SODIUM 1 EACH TAB PO SCH (09:43)
[2020-09-24] MEDS: BACLOFEN 10 MG TAB PO SCH (09:44)
[2020-09-24] MEDS: MULTIVITAMINS, THERA 1 EACH TAB PO SCH (09:44)
[2020-09-24] MEDS: dexAMETHasone 4 MG TAB PO SCH (09:44)
[2020-09-24] MEDS: THIAMINE 100 MG TAB PO SCH ×2 (09:44→17:32)
[2020-09-24] MEDS: ZINC SULFATE 220 MG CAP PO SCH (09:45)
[2020-09-24] MEDS: ASCORBIC ACID 500 MG TAB PO SCH (09:45)
[2020-09-24 10:07] VITALS: RESP 18
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
--- NOTE | 2020-09-24 12:01 | CT ---
EXAMINATION TYPE: CT angio chest DATE OF EXAM: 09/24/2020 COMPARISON: Chest x-ray same date, CT chest 09/21/2020 HISTORY: Elevated d-dimer and shortness of breath CT DLP: 411.4 mGycm Automated exposure control for dose reduction was used. CONTRAST: CTA scan of the thorax is performed, patient injected with 100 mL of Isovue 370, pulmonary embolism p rotocol. MIP images are created and reviewed. 3D reconstructed images are created on an independent workstation and reviewed. FINDINGS: LUNGS: The lungs are grossly clear, there is no concerning parenchymal mass or nodule identified. Par aseptal emphysematous changes are noted especially in the upper lobes, there is some dependent atelec tatic change present especially at the lung bases. Calcified subpleural nodules noted axial image 94 peripherally in the left lower lobe There is no pleural effusion or pneumothorax seen. The tracheob ronchial tree is patent. AORTA: No additional significant abnormality is seen. MEDIASTINUM: There is satisfactory enhancement of the pulmonary artery and its branches, there is no CT evidence for pulmonary embolism. There are no greater than 1 cm hilar or mediastinal lymph nodes. No pericardial effusion is seen. OTHER: No additional significant abnormality is seen. IMPRESSION: BASILAR ATELECTASIS, NO EVIDENT PULMONARY EMBOLUS. ADDITIONAL FINDINGS ABOVE.
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
[2020-09-24 16:25] VITALS: BP 132/80; PULSE 80; TEMP 97.5
== END 2020-09-24 19:25 | DRG 492 ==
LOC: EC 21:44 → 4SSUR 09-22
PROVIDERS: ADMIT Surgery; ATTEND Surgery
PROC: 8E0ZXY6 Isolation (ICD-10-PCS; 2020-09-22)
PROC: 0QSG06Z Reposition Right Tibia with Intramedullary Internal Fixation Device, Open Approach (ICD-10-PCS; principal; 2020-09-22 00:48)
DX: S82.251B Displaced comminuted fracture of shaft of right tibia, initial encounter for open fracture type I or II (principal); U07.1 COVID-19; E22.2 Syndrome of inappropriate secretion of antidiuretic hormone; S82.451B Displaced comminuted fracture of shaft of right fibula, initial encounter for open fracture type I or II; Z88.2 Allergy status to sulfonamides; F20.9 Schizophrenia, unspecified; F41.0 Panic disorder [episodic paroxysmal anxiety]; F10.129 Alcohol abuse with intoxication, unspecified; V02.90XA Pedestrian on foot injured in collision with two- or three-wheeled motor vehicle, unspecified whether traffic or nontraffic accident, initial encounter; Y92.9 Unspecified place or not applicable; Y92.410 Unspecified street and highway as the place of occurrence of the external cause; S82.52XA Displaced fracture of medial malleolus of left tibia, initial encounter for closed fracture; M25.521 Pain in right elbow; K21.9 Gastro-esophageal reflux disease without esophagitis; Y90.7 Blood alcohol level of 200-239 mg/100 ml; I10 Essential (primary) hypertension; E78.5 Hyperlipidemia, unspecified
CPT/HCPCS: 36415; 70450; 71045; 71260; 71275; 72125; 72170; 74177; 80053; 80202; 80306; 80320; 81001; 83605; 84484; 85025; 85027; 85379; 85610; 85730; 86850; 86900; 86901; 87635; 93005

== ENCOUNTER 2021-02-11 20:55 | Emergency (ER) | payer MEDICARE, OTHER ==
[2021-02-11 21:04] VITALS: TEMP 97.3
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
[2021-02-11 22:48] LABS: Amphetamine Screen,Urine Not Detected (NotDetected); Barbiturate Screen,Urine Not Detected (NotDetected); Benzodiazepines Screen,Urine Not Detected (NotDetected); Cocaine Screen,Urine Not Detected (NotDetected); Methadone Screen, Urine Not Detected (NotDetected); Opiate Screen,Urine Detected (NotDetected); Oxycodone Screen, Urine Not Detected (NotDetected); Phencyclidine Screen,Urine Not Detected (NotDetected); Tricyclic Antidepressant,Urine Not Detected (NotDetected); Urn Cannabinoid Scrn Not Detected (NotDetected)
[2021-02-11 22:58] VITALS: BP 155/85; PULSE 88; RESP 20
== END 2021-02-11 23:08 | disposition home or self-care (01) ==
LOC: EC 20:55
DX: F32.9 Major depressive disorder, single episode, unspecified (principal); F41.9 Anxiety disorder, unspecified; F20.9 Schizophrenia, unspecified; Z88.2 Allergy status to sulfonamides
CPT/HCPCS: 80306; 82075; 99284